=== PATIENT | female | born 1935 | race Caucasian/White ===

== ENCOUNTER 2017-01-22 10:34 | Outpatient (RCR) | payer MEDICARE | END 2017-02-21 | LOC: WCC 10:34 | PROVIDERS: ATTEND Internal Medicine Infectious Disease | DX: I87.331 Chronic venous hypertension (idiopathic) with ulcer and inflammation of right lower extremity (principal); L97.812 Non-pressure chronic ulcer of other part of right lower leg with fat layer exposed; I73.89 Other specified peripheral vascular diseases; I87.2 Venous insufficiency (chronic) (peripheral); R60.0 Localized edema ==

== ENCOUNTER 2020-09-26 16:56 | Emergency (ER) | payer MEDICARE ==
[~2020-09-26] VITALS: Ht 170.2 cm; Wt 56.7 kg
== END 2020-09-26 21:00 | disposition home or self-care (01) ==
LOC: ER 18:15
DX: M25.551 Pain in right hip (principal); S00.83XA Contusion of other part of head, initial encounter; S20.219A Contusion of unspecified front wall of thorax, initial encounter; W19.XXXA Unspecified fall, initial encounter; Y92.128 Other place in nursing home as the place of occurrence of the external cause; F03.90 Unspecified dementia, unspecified severity, without behavioral disturbance, psychotic disturbance, mood disturbance, and anxiety; I10 Essential (primary) hypertension; F41.9 Anxiety disorder, unspecified
CPT/HCPCS: 70450; 71045; 72125; 99283

== ENCOUNTER 2021-01-12 21:48 | Emergency (ER) | payer MEDICARE ==
[~2021-01-12] VITALS: Ht 170.2 cm; Wt 56.7 kg
== END 2021-01-13 02:35 | disposition home or self-care (01) ==
LOC: ER 21:57
DX: S00.81XA Abrasion of other part of head, initial encounter (principal); W19.XXXA Unspecified fall, initial encounter; Y93.01 Activity, walking, marching and hiking; Y92.128 Other place in nursing home as the place of occurrence of the external cause; I10 Essential (primary) hypertension; F03.90 Unspecified dementia, unspecified severity, without behavioral disturbance, psychotic disturbance, mood disturbance, and anxiety; I73.9 Peripheral vascular disease, unspecified; F41.9 Anxiety disorder, unspecified
CPT/HCPCS: 70450; 70486; 72125; 99282

== ENCOUNTER 2021-01-25 15:59 | Emergency (ER) | payer MEDICARE ==
[~2021-01-25] VITALS: Ht 170.2 cm; Wt 56.7 kg
[2021-01-25 21:09] VITALS: BP 131/79
== END 2021-01-25 20:19 ==
LOC: ER 16:10
DX: S00.03XA Contusion of scalp, initial encounter (principal); F03.90 Unspecified dementia, unspecified severity, without behavioral disturbance, psychotic disturbance, mood disturbance, and anxiety; W03.XXXA Other fall on same level due to collision with another person, initial encounter; Y93.89 Activity, other specified; Y92.128 Other place in nursing home as the place of occurrence of the external cause
CPT/HCPCS: 70450; 72125; 99284

== ENCOUNTER 2021-02-01 13:55 | Emergency (ER) | payer MEDICARE, OTHER ==
[~2021-02-01] VITALS: Ht 170.2 cm; Wt 56.7 kg
[2021-02-01 19:18] VITALS: BP 125/100
== END 2021-02-01 19:24 ==
LOC: ER 15:01
DX: S00.83XA Contusion of other part of head, initial encounter (principal); W01.0XXA Fall on same level from slipping, tripping and stumbling without subsequent striking against object, initial encounter; Y92.128 Other place in nursing home as the place of occurrence of the external cause; F03.90 Unspecified dementia, unspecified severity, without behavioral disturbance, psychotic disturbance, mood disturbance, and anxiety; I10 Essential (primary) hypertension; F41.9 Anxiety disorder, unspecified; I73.9 Peripheral vascular disease, unspecified
CPT/HCPCS: 70450; 72125; 99284